=== PATIENT | female | born 1970 | race Caucasian/White ===

== ENCOUNTER 2022-08-02 11:05 | Day surgery (SDC) | payer BC ==
[~2022-08-02 11:05] MED LIST: LACTATED RINGERS 1,000 ML IV SCH; LIDOCAINE 1% (10MG/ML) FOR IV START INTRADERMA PRN
[2022-08-02 11:43] VITALS: TEMP 97.7
[2022-08-02] MEDS ORDERED: MIDAZOLAM 2 MG/2 ML VIAL IVP ONE ×2 (11:46)
[2022-08-02] MEDS ORDERED: LIDOCAINE 2% INJ 20 MG/ML (2 ML VIAL) ONE (12:00)
[2022-08-02] MEDS ORDERED: PROPOFOL 10 MG/ML 20 ML VIAL IV ONE (12:00)
[2022-08-02 12:51] LABS: Basophils % (A) 0 %; Eosinophils # (A) 0.4 k/uL (0-0.7); Eosinophils % (A) 4 %; HCT 37.8 % (34.0-46.0); HGB 12.4 gm/dL (11.4-16.0); Lymphocytes # (A) 1.7 k/uL (1.0-4.8); Lymphocytes % (A) 16 %; MCV 103.1 fL (80.0-100.0); Macrocytosis Slight; Mean Platelet Volume 8.2; Monocytes # (A) 0.5 k/uL (0-1.0); Monocytes % (A) 4 %; Neutrophils # (A) 7.9 k/uL (1.3-7.7); Neutrophils % (A) 74 %; Platelet Count 356 k/uL (150-450); RBC 3.66 m/uL (3.80-5.40); Reticulocyte % 1.7 % (0.5-2.0); WBC 10.7 k/uL (3.8-10.6)
--- NOTE | 2022-08-02 13:02 | PCN ---
PROCEDURE NOTE PROCEDURE PERFORMED: Bone marrow aspirate and biopsy. INDICATIONS: Microcytic anemia. DESCRIPTION OF PROCEDURE: After obtaining consent from the patient, procedure was performed in the endoscopy suite under general anesthesia sedation performed by the Anesthesia Team. The patient was put in the left lateral decubitus position. The right posterior superior iliac crest was localized. Skin was prepped with ChloraPrep, all sterile procedures were followed. 2 mL of 2% lidocaine was used for local anesthetic. Monoject needle was inserted. About 10 mL aspirate and 1.5 cm core biopsy was obtained without any difficulties. Pressure applied afterwards. There was negligible blood loss. The patient tolerated procedure very well without any immediate complications. MMODL / IJN: [id number] /
[2022-08-02 13:17] VITALS: BP 102/66; PULSE 71; RESP 18
== END 2022-08-02 13:31 | disposition home or self-care (01) ==
LOC: OR 11:05
PROVIDERS: ATTEND Internal Medicine Hematology & Oncology
DX: D50.9 Iron deficiency anemia, unspecified (principal); F32.A Depression, unspecified; K21.9 Gastro-esophageal reflux disease without esophagitis; Z86.73 Personal history of transient ischemic attack (TIA), and cerebral infarction without residual deficits; Z79.899 Other long term (current) drug therapy; Z90.710 Acquired absence of both cervix and uterus
CPT/HCPCS: 85025; 85045; 38222; J2250; J2704; J2001